=== PATIENT | female | born 2000 | race Caucasian/White ===

== ENCOUNTER 2024-02-24 08:25 | Day surgery (SDC) | payer OTHER ==
[2024-02-18 10:57] VITALS: BMI 38.0
[2024-02-24] MEDS ORDERED: Midazolam HCl 2 mg/2 ml Vial ONE (09:29)
[2024-02-24] MEDS ORDERED: Scopolamine 1 mg/72 hour Patch ONE (09:29)
[2024-02-24] MEDS ORDERED: CEFAZOLIN 2 GM VIAL ONE (09:35)
[2024-02-24] MEDS ORDERED: Ondansetron PF 4 MG/2 ML Vial ONE (09:48)
[2024-02-24] MEDS ORDERED: PROPOFOL 20 ML ONE (09:48)
[2024-02-24] MEDS ORDERED: fentaNYL PF 100 MCG/2 ML SYRINGE ONE (09:48)
[2024-02-24] MEDS ORDERED: Lidocaine 1% PF 5 ML VIAL ONE (09:48)
[2024-02-24] MEDS ORDERED: Lidocaine 1% (PF) 30 ML VIAL ONE (10:08)
[2024-02-24] MEDS ORDERED: fentaNYL 50 mcg/mL 1 mL Vial ONE ×2 (11:42→12:55)
[2024-02-24] MEDS ORDERED: HYDROcodone/Acetaminophen 5/325 mg Tablet ONE (13:24)
[2024-02-24] MEDS ORDERED: Ropivacaine 0.5% HCl/PF (150 MG/30 ML VIAL) ONE (14:25)
[2024-02-24] MEDS ORDERED: Ropivacaine 2% HCl/PF (20 MG/10 ML VIAL) ONE (14:25)
== END 2024-02-24 14:50 | disposition home or self-care (01) ==
LOC: SDC 08:25
PROVIDERS: ATTEND Orthopaedic Surgery
PROC: 3E0T3BZ Introduction of Anesthetic Agent into Peripheral Nerves and Plexi, Percutaneous Approach (ICD-10-PCS; principal; 2024-02-24)
PROC: 0PSH04Z Reposition Right Radius with Internal Fixation Device, Open Approach (ICD-10-PCS; principal; 2024-02-24)
DX: S52.511A Displaced fracture of right radial styloid process, initial encounter for closed fracture (principal); Z90.89 Acquired absence of other organs; Z88.1 Allergy status to other antibiotic agents; Z91.018 Allergy to other foods; V89.2XXA Person injured in unspecified motor-vehicle accident, traffic, initial encounter
CPT/HCPCS: C1713; J2250; J2405; J2704; J2795; J3010

== ENCOUNTER 2024-05-26 11:42 | Outpatient (CLI) | payer BC, OTHER ==
[2024-05-26 13:58] LABS: BHCG - Serum Negative (NEGATIVE); Pregs Control Background? CLEAR/WHITE (CLR/WHITE); Pregs Control Bar Appear? YES (CONTROL BAR)
== END 2024-05-26 11:43 | disposition home or self-care (01) ==
LOC: LABBT 11:42
PROVIDERS: ATTEND Orthopaedic Surgery
DX: Z01.812 Encounter for preprocedural laboratory examination (principal); Z98.890 Other specified postprocedural states
CPT/HCPCS: 84703

== ENCOUNTER 2024-06-01 06:03 | Day surgery (SDC) | payer BC ==
[2024-05-26 12:13] VITALS: BMI 38.9
[2024-06-01] MEDS ORDERED: Bupivacaine PF 0.5% 30 ML VIAL ONE (06:28)
[2024-06-01] MEDS ORDERED: CEFAZOLIN 2 GM VIAL ONE (06:43)
[2024-06-01] MEDS ORDERED: Scopolamine 1 mg/72 hour Patch ONE (07:08)
[2024-06-01] MEDS ORDERED: Lidocaine 1% PF 5 ML VIAL ONE (07:11)
[2024-06-01] MEDS ORDERED: Midazolam HCl 2 mg/2 ml Vial ONE (07:11)
[2024-06-01] MEDS ORDERED: PROPOFOL 20 ML ONE (07:11)
[2024-06-01] MEDS ORDERED: Dexamethasone 20 MG/5 ML VIAL ONE (07:11)
[2024-06-01] MEDS ORDERED: fentaNYL PF 100 MCG/2 ML SYRINGE ONE (07:11)
[2024-06-01] MEDS ORDERED: Ondansetron PF 4 MG/2 ML Vial ONE (07:11)
[2024-06-01] MEDS ORDERED: PHENYLEPHRINE-NS 100 MCG/ML 10 ML SYRINGE ONE (07:45)
== END 2024-06-01 09:59 | disposition home or self-care (01) ==
LOC: SDC 06:03
PROVIDERS: ATTEND Orthopaedic Surgery
PROC: 0RPN04Z Removal of Internal Fixation Device from Right Wrist Joint, Open Approach (ICD-10-PCS; principal; 2024-06-01)
DX: S52.511D Displaced fracture of right radial styloid process, subsequent encounter for closed fracture with routine healing (principal); Z98.890 Other specified postprocedural states; Z90.89 Acquired absence of other organs; Z88.1 Allergy status to other antibiotic agents; Z91.018 Allergy to other foods; V89.2XXD Person injured in unspecified motor-vehicle accident, traffic, subsequent encounter
CPT/HCPCS: J0665; J1100; J2250; J2405; J2704